=== PATIENT | male | born 1945 | race Caucasian/White ===

== ENCOUNTER 2017-01-06 09:39 | Emergency (ER) | payer OTHER ==
--- NOTE | 2017-01-06 10:51 | CPEKG ---
Heart Rate: 56 RR Interval: 1071 P-R Interval: 184 QRSD Interval: 82 QT Interval: 436 QTC Interval: 421 P [place]: 10 QRS [place]: 44 T Wave [place]: 54 EKG Severity - OTHERWISE NORMAL ECG - EKG Impression: SINUS RHYTHM EKG Impression: ATRIAL PREMATURE COMPLEX Electronically Signed By: Rossi Schmidt 06-Jan-2017 15:54:18
[2017-01-06 11:21] LABS: % IMMATURE GRANULYOCYTES 0.4 % (0.0-1.1); ABSOLUTE IMMATURE GRANULOCYTES 0.02 10^3/uL (0.00-0.10); ADD DIFF? NO; ADD MORPH? NO; ADD SCAN? NO; ATYPICAL LYMPHOCYTE FLAG 10 (0-99); FRAGMENT RBC FLAG 0 (0-99); HEMATOCRIT 48.1 % (40.0-51.0); HEMOGLOBIN 16.9 g/dL (13.7-17.5); LEFT SHIFT FLG 0 (0-99); LIPEMIA HEMOLYSIS FLAG 90 (0-99); MEAN CELL HEMOGLOBIN 32.4 pg (27.9-34.1); MEAN CELL HEMOGLOBIN CONCENTR. 35.1 g/dL (32.4-36.7); MEAN CELL VOLUME 92.3 fL (81.5-99.8); MEAN PLATELET VOLUME 10.6 fL (8.7-11.7); PLATELET CLUMPS FLAG 10 (0-99); PLATELET COUNT 148 10^3/uL (150-400); RED BLOOD CELL COUNT 5.21 10^6/uL (4.40-6.38); RED CELL DISTRIBUTION WIDTH 12.9 % (11.5-15.2)
[2017-01-06 11:27] LABS: ANION GAP 12 mEq/L (8-16); CALCIUM 9.3 mg/dL (8.5-10.4); CARBON DIOXIDE 25 mEq/l (22-31); CHLORIDE 105 mEq/L (97-110); GLOMERULAR FILTRATION RATE > 60; GLUCOSE 98 mg/dL (70-100); POTASSIUM 4.5 mEq/L (3.5-5.2); SODIUM 142 mEq/L (134-144)
[2017-01-06] MEDS ORDERED: ACETAMINOPHEN 325 MG TAB PO ONE (12:39)
--- NOTE | 2017-01-06 12:39 | EDPHY ---
H & P Time Seen by Provider: 01/06/17 10:55 HPI/ROS: CHIEF COMPLAINT: Head pressure, dizziness HISTORY OF PRESENT ILLNESS: 71-year-old male presents with head pressure and dizziness. Yesterday evening, he developed a vague sensation of head pressure that persists today. 02/10, no pain meds taken. Associated with dizziness. He is unable to describe the dizziness. He does not have a room spinning sensation and does not feel like he might faint. No recent illness or fever. No recent head/neck injury or chiropractic manipulation. REVIEW OF SYSTEMS: Constitutional: No fever, no chills Eyes: No visual changes ENT: No sore throat Respiratory: No cough, no shortness of breath Cardiac: No chest pain Gastrointestinal: no vomiting, no abdominal pain Genitourinary: no dysuria Musculoskeletal: No leg pain or swelling Skin: No rash Neurological: no numbness, no weakness Psychiatric: No depression Past Medical/Surgical History: Essential tremor Social History: Lives in own home Smoking Status: Never smoked Physical Exam: General Appearance: Alert, pleasant Eyes: Pupils equal and round, EOMI, no conjunctival pallor or injection, no nystagmus ENT, Mouth: Mucous membranes moist Neck: Normal inspection Respiratory: Lungs are clear to auscultation Cardiovascular: Regular rate and rhythm Gastrointestinal: Abdomen is soft and nontender Neurological: Alert, oriented x3, cranial nerves II through XII intact, motor 5 /5, sensory intact to light touch, normal gait Skin: Warm and dry, no rash Extremities: Nontender, no pedal edema Psychiatric: Mood and affect normal Constitutional: Initial Vital Signs Temperature (C) 36.9 C 01/06/17 09:46 Heart Rate 60 01/06/17 09:46 Respiratory Rate 18 01/06/17 09:46 Blood Pressure 132/70 H 01/06/17 09:46 O2 Sat (%) 96 01/06/17 09:46 O2 Delivery Mode Room Air Allergies/Adverse Reactions: No Known Allergies Allergy (Unverified 01/06/17 09:48) Home Medications: Medication Instructions Recorded NK [No Known Home Meds] 01/06/17 Medical Decision Making - Diagnostics EKG Interpretation: EKG interpreted by me reveals sinus rhythm, rate 56, PAC, no ST or T segment changes. Imaging: CT scan of the brain read by the radiologist is normal. ED Course/Re-evaluation: This patient presents with a mild/moderate head pressure, which he describes as not being a headache. He has a normal neurologic exam and no concerning signs or symptoms suggestive of a serious etiology for his discomfort. Given advanced age, I will proceed with CT scan of the brain. CT scan results discussed with the patient. He declines IV fluids and pain medication. He would like to go home. He will follow up with Dr. Inman in the office tomorrow. I do not feel that further neuro imaging is indicated today. Headache precautions were given. If he has worsening symptoms, he will return to the emergency department for re-evaluation. Differential Diagnosis: Headache including but not limited to subarachnoid hemorrhage, migraine headache , tension headache and infectious causes such as meningitis, pharyngitis and sinusitis. - Data Points Laboratory Results: Laboratory Results 01/06/17 10:55 01/06/17 10:55 01/06/17 01/06/17 10:55 10:55 WBC 4.67 10^3/uL 10^3/uL (3.80-9.50) RBC 5.21 10^6/uL 10^6/uL (4.40-6.38) Hgb 16.9 g/dL g/dL (13.7-17.5) Hct 48.1 % % (40.0-51.0) MCV 92.3 fL fL (81.5-99.8) MCH 32.4 pg pg (27.9-34.1) MCHC 35.1 g/dL g/dL (32.4-36.7) RDW 12.9 % % (11.5-15.2) Plt Count 148 10^3/uL L 10^3/uL (150-400) MPV 10.6 fL fL (8.7-11.7) Neut % (Auto) 54.7 % % (39.3-74.2) Lymph % (Auto) 35.1 % % (15.0-45.0) [place] % (Auto) 7.5 % % (4.5-13.0) Eos % (Auto) 1.7 % % (0.6-7.6) Baso % (Auto) 0.6 % % (0.3-1.7) Nucleat RBC Rel Count 0.0 % % (0.0-0.2) Absolute Neuts (auto) 2.55 10^3/uL 10^3/uL (1.70-6.50) Absolute Lymphs (auto) 1.64 10^3/uL 10^3/uL (1.00-3.00) Absolute Monos (auto) 0.35 10^3/uL 10^3/uL (0.30-0.80) Absolute Eos (auto) 0.08 10^3/uL 10^3/uL (0.03-0.40) Absolute Basos (auto) 0.03 10^3/uL 10^3/uL (0.02-0.10) Absolute Nucleated RBC 0.00 10^3/uL 10^3/uL (0-0.01) Immature Gran % 0.4 % % (0.0-1.1) Immature Gran # 0.02 10^3/uL 10^3/uL (0.00-0.10) Sodium 142 mEq/L mEq/L (134-144) Potassium 4.5 mEq/L mEq/L (3.5-5.2) Chloride 105 mEq/L mEq/L (97-110) Carbon Dioxide 25 mEq/l mEq/l (22-31) Anion Gap 12 mEq/L mEq/L (8-16) BUN 18 mg/dL mg/dL (7-23) Creatinine 1.0 mg/dL mg/dL (0.7-1.3) Estimated GFR > 60 Glucose 98 mg/dL mg/dL (70-100) Calcium 9.3 mg/dL mg/dL (8.5-10.4) Medications Given: Discontinued Medications Acetaminophen (Tylenol) 650 mg PO EDNOW ONE Stop: 01/06/17 12:40 Last Admin: 01/06/17 13:05 Dose: 650 mg Departure - Departure Disposition: Home, Routine, Self-Care Clinical Impression: Headache Qualifiers: Headache type: unspecified Headache chronicity pattern: acute headache Intractability: not intractable Qualified Code(s): R51 - Headache Condition: Good Instructions: Acute Headache (ED) Additional Instructions: Ibuprofen 600 mg 3 times daily as needed while the pain persists. Referrals: Uriel Inman MD [Primary Care Provider] - 1 day without fail
[2017-01-06 13:07] VITALS: BP 138/71; PULSE 63; RESP 17; TEMP 97.7; O2SAT 95
== END 2017-01-06 13:08 | disposition home or self-care (01) ==
DX: R51 Headache (principal)